=== PATIENT | male | born 1960 | race Caucasian/White ===

== ENCOUNTER 2021-12-03 13:12 | Outpatient (CLI) | payer MEDICARE, MEDICAID, SELFPAY | END 2021-12-03 13:13 | disposition home or self-care (01) | LOC: ANHBWCAUD 13:16 | DX: H91.93 Unspecified hearing loss, bilateral (principal) | CPT/HCPCS: 92555; 92567; 92579 ==

== ENCOUNTER 2024-12-06 08:08 | Outpatient (CLI) | payer MEDICARE, MEDICAID, SELFPAY | END 2024-12-06 08:09 | disposition home or self-care (01) | DX: H91.3 Deaf nonspeaking, not elsewhere classified (principal) | CPT/HCPCS: 92567 ==

== ENCOUNTER 2025-07-25 09:04 | Outpatient (CLI) | payer MEDICARE, MEDICAID, SELFPAY ==
--- OUTSIDE RECORDS SUMMARY | 2025-07-25 09:56 | XMS_ITS | Clinical Summary ---
Author Organization [address] Address [address] [place] [id number] Care Team Providers Care Wage And Salary Specialist Name Role Phone David Winter MD Primary Care Provider Allergies No known active allergies Medications docusate sodium (COLACE) 100 mg capsule take 1 capsule (100MG) by oral route every day at bedtime as needed 0 12/05/2011 Active acetaminophen (TYLENOL) 325 mg tabletIndicatio ns:Fever,Pain Take 2 tablets (650 mg total) by mouth every 4 (four) hours as needed for fever 30 tablet 07/09/2023 Active Active Problems Problem Noted Date Diagnosed Date Pneumonia due to organism 07/04/2023 Assessment & Plan (07/20/2023 11:02 AM CDT): Currently doing very well clinically, will repeat CXR in 2 weeks for follow up. Completed Augmentin Weight loss 05/28/2023 Assessment & Plan (05/28/2023 11:27 AM CDT): He has lost about 30 pounds in less than a year, labs are normal Encephalopathy 07/09/2022 Assessment & Plan (07/09/2022 7:29 AM CDT): encephalopathy 2/2 possible metabolic vrs hypoxic vrs toxic insult vrs sedative side effect of medications There was no epileptiform discharge seen in this tracing. Thrombocytopenia 07/08/2022 Hypoglycemia 07/08/2022 Assessment & Plan (07/08/2022 4:15 PM CDT): resolved Other dysphagia 07/08/2022 Assessment & Plan (07/08/2022 4:16 PM CDT): Pt is being followed by [employer], has educated family and Suly Baker on his current condition and best next steps for him. Lactic acidosis 07/05/2022 Assessment & Plan (07/08/2022 4:14 PM CDT): resolved Aspiration pneumonia 07/05/2022 Assessment & Plan (07/15/2022 9:44 AM CDT): Patient was admitted for 7 days to [facility] with sepsis/aspiration pneumonia. Initially in the ICU on pressors has improved significantly and was discharged to home. No other new issues currently at play Assessment & Plan (07/08/2022 4:10 PM CDT): Continue as planned under sepsis Acute respiratory failure with hypoxia Assessment & Plan (07/08/2022 4:15 PM CDT): Continue as planned under sepsis Transient alteration of awareness 07/05/2022 Assessment & Plan (07/08/2022 4:15 PM CDT): Likely due to septic shock. This has resolved, per hot mill observer and family member. Septic shock due to undetermined organism 2021 Assessment & Plan (07/10/2022 1:13 PM CDT): Pt had initial VS of 93% saturation on 10L non-rebreather, tachycardia of 123, and R39. Meets septic shock criteria, unknown organism causing disease, and required levophed for BP support. It was found that he had a pos source of infection of b/l lung damian, probable aspiration, and was admitted for further evaluation. While in ED, he developed hypotension that was unresponsive to IV fluids which is why he was admitted to the ICU. Blood cultures neg. He recovered well on levophed that has since been d/c'd. - continue daily CBC and BMP, and mag. - monitor VS - continue zosyn for a max of 7 days, current day 5 - will encourage respiratory exercises, may prove difficult due to intellectual disability - supplemental O2 as needed and wean as tolerated Elevated PSA 05/12/2022 Assessment & Plan (05/28/2023 11:06 AM CDT): follow with Dr OVI QUEVEDO , urologist, last PSA of 4.82 Assessment & Plan (05/12/2022 1:17 PM CDT): follow with Dr OVI QUEVEDO , urologist, last PSA of 4.82 Foot pain 03/11/2018 Assessment & Plan (03/11/2018 1:27 PM CDT): Continues follow with Podiatry today is a 6 month follow Medicare annual wellness visit, subsequent 01/06 Assessment & Plan (06/12/2025 9:11 AM CDT): A Medicare Annual Wellness Visit (AWV) was done today as well. The patient filled out a depression screen, functional assessment screen, health risk assessment, and other physicians list. All the elements of this exam were completed as outlined by CMS. Please note that the documentation of this is split between paper documentation and this electronic record. Assessment & Plan (06/10/2024 10:06 AM CDT): A Medicare Annual Wellness Visit (AWV) was done today as well. The patient filled out a depression screen, functional assessment screen, health risk assessment, and other physicians list. All the elements of this exam were completed as outlined by CMS. Please note that the documentation of this is split between paper documentation and this electronic record. Assessment & Plan (05/28/2023 11:06 AM CDT): A Medicare Annual Wellness Visit (AWV) was done today as well. The patient filled out a depression screen, functional assessment screen, health risk assessment, and other physicians list. All the elements of this exam were completed as outlined by CMS. Please note that the documentation of this is split between paper documentation and this electronic record. Assessment & Plan (05/12/2022 1:16 PM CDT): A Medicare Annual Wellness Visit (AWV) was done today as well. The patient filled out a depression screen, functional assessment screen, health risk assessment, and other physicians list. All the elements of this exam were completed as outlined by CMS. Please note that the documentation of this is split between paper documentation and this electronic record. Assessment & Plan (04/26/2021 9:43 AM CDT): A Medicare Annual Wellness Visit (AWV) was done today as well. The patient filled out a depression screen, functional assessment screen, health risk assessment, and other physicians list. All the elements of this exam were completed as outlined by CMS. Please note that the documentation of this is split between paper documentation and this electronic record. Assessment & Plan (04/18/2020 9:39 AM CDT): A Medicare Annual Wellness Visit (AWV) was done today as well. The patient filled out a depression screen, functional assessment screen, health risk assessment, and other physicians list. All the elements of this exam were completed as outlined by CMS. Please note that the documentation of this is split between paper documentation and this electronic record. Assessment & Plan (2018 8:39 AM CDT): A Medicare Annual Wellness Visit (AWV) was done today as well. The patient filled out a depression screen, functional assessment screen, health risk assessment, and other physicians list. All the elements of this exam were completed as outlined by CMS. Please note that the documentation of this is split between paper documentation and this electronic record. Colon cancer screening 2018 Assessment & Plan (2018 8:41 AM CDT): Colonoscopy status is unclear he should at least have colo Guard or stool testing done will discuss with staff at [facility] BMI 23.0-23.9, adult 12/11/2017 Overview (2018): BMI Follow-up includes: nutrition counseling, exercise counseling and education provided. Assessment & Plan (12/11/2017 8:58 AM HOME CARE AIDE): BMI Follow-up includes: nutrition counseling, exercise counseling and education provided. 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 02/18/2014 Overview (01/08/2017): SEVERE MENTAL RETARDAT Assessment & Plan (05/28/2023 11:06 AM CDT): No changes currently we can follow him as his clinical course dictates Assessment & Plan (07/08/2022 4:14 PM CDT): Nothing to do Assessment & Plan (03/11/2018 1:26 PM CDT): Note she is currently we can currently follow Emotional stress reaction 02/18/2014 Overview (01/08/2017): STRESS REACT, EMOTIONAL Assessment & Plan (03/11/2018 1:27 PM CDT): He is not having any new complaints currently Assessment & Plan (12/11/2017 9:05 AM HOME CARE AIDE): No current no current issues we can follow Resolved Problems Problem Noted Date Diagnosed Date Resolved Date BMI 25.0-25.9,adult 01/07/2019 05/12/20 22 Overview (01/07/2019): BMI Follow-up includes: nutrition counseling, exercise counseling and education provided. Medicare annual wellness visit, initial 12/11/2017 05/12/2022 Assessment & Plan (12/11/2017 9:05 AM HOME CARE AIDE): A Medicare Annual Wellness Visit (AWV) was done today as well. The patient filled out a depression screen, functional assessment screen, health risk assessment, and other physicians list. All the elements of this exam were completed as outlined by CMS. Please note that the documentation of this is split between paper documentation and this electronic record. Encounters Date Type Department Care Team Description 06/12/2025 9:00 AM CDT Office Visit [address] [phone] David Winter MD Severe intellectual disability with intelligence quotient 20 to 34 (Primary Dx); Emotional stress reaction; Medicare annual wellness visit, subsequent; Aspiration pneumonia, unspecified aspiration pneumonia type, unspecified laterality, unspecified part of lung (HCC); Hypoglycemia from Last 3 Months Immunizations Immunization Administration Dates Next Due COVID-19 mRNA (PFIZER) 0.3 m L (30 mcg) vaccine (12 years and up) 08/10/2024 Influenza, Quadrivalent, Spl it, Intramuscular 06/19/2016 Influenza, Quadrivalent, Spl it, Preservative Free, Intramuscular 07/09/2023,08/07/2020,07/05/2014 Influenza, Trivalent, IM (MDV) 07/05/2015,2012,06/24/2011 Influenza, Unspecified 06/12/2025,2021(Deferred: Patient decision),07/05/2021(Deferred: Patient decision),07/19/2019,07/22/2018,2016 Pfizer SARS-CoV-2 Monovalent Vaccination (12+ Yrs) PURPLE 12/07/2020,11/15/2020 Pfizer Sars-Cov-2 Bivalent V accination (12+ YRS) 07/03/2022 Pneumococcal Conjugate Pcv20 03/08/2025 Social History Tobacco Use Types Packs/Day Years Used Date Smoking Tobacco: Never Tobacco Cessation:Counseling Given: Not Answered Alcohol Use Standard Drinks/Week Comments No 0 (1 standard drink = 0.6 oz pur e alcohol) Social Connection and Isolation Panel Answer Date Recorded In a typical week, how many times do you talk on the phone with family, friends, or neighbors? More than three times a week 07/06/2023 How often do you get togethe r with friends or relatives? More than three times a week 07/06/2023 How often do you attend chur ch or yazidism services? Never 07/06/2023 Do you belong to any clubs o r organizations such as restorationist groups, unions, fraternal or athletic groups, or school groups? No 07/06/2023 How often do you attend meet ings of the clubs or organizations you belong to? Never 07/06/2023 Are you , , di vorced, , never , or living with a partner? Never 07/06/2023 Overall Financial Resource Strain (CARDIA) Answe r Date Recorded How hard is it for you to pa y for the very basics like food, housing, medical care, and heating? Not hard at all 07/06/2023 PHQ-2 Answer Date Recorded PHQ-2 Total Score (If total score is 3 or more points, staff should administer the PHQ-9) 0 06/12/2025 Hunger Vital Sign Answer Date Recorded Within the past 12 months, y ou worried that your food would run out before you got the money to buy more. Never true 07/06/20 23 Within the past 12 months, t he food you bought just didn't last and you didn't have money to get more. Never true 07/06/2023 PRAPARE - Transportation Answer Date Re corded In the past 12 months, has l ack of transportation kept you from medical appointments or from getting medications? No 11/2022 In the past 12 months, has l ack of transportation kept you from meetings, work, or from getting things needed for daily living? No 07/06/2023 Housing Stability Vital Sign Answer Addison e Recorded In the last 12 months, was t here a time when you were not able to pay the mortgage or rent on time? No 07/06/2023 Number of Places Lived in the Last Year Not on f ile 07/06/2023 In the last 12 months, was t here a time when you did not have a steady place to sleep or slept in a assisted (including now)? No 07/06/2023 Personal Safety Answer Date Recorded Have you ever been in or are you currently in a harmful physical or emotional relationship or is someone making you feel afraid or unsafe? Denies 07/04/2023 Sex and Gender Information Value Date Recorded Sex Assigned at Not on file Legal Sex Male 10:03 AM HOME CARE AIDE Gender Identity Not on file Sexual Orientation Not on file Obstetrics History Last Filed Vital Signs Vital Sign Reading Time Taken Comments Blood Pressure 112/64 06/12/2025 9:02 AM CDT Pulse 62 06/12/2025 9:02 AM CDT Temperature 36.8 C (98.2 F) 07/09/2023 8:15 AM CDT Respiratory Rate 16 07/09/2023 8:15 AM CDT Oxygen Saturation 96% 06/12/2025 9:02 AM CDT Inhaled Oxygen Concentration - - Weight 62.6 kg (138 lb) 06/12/2025 9:02 AM CDT Height 170.2 cm (5' 7) 06/12/2025 9:02 AM CDT Body Mass Index 21.61 06/12/2025 9:02 AM CDT Plan of Treatment Health Maintenance Due Date Last Done Comments Hepatitis C Screening 1960 DTaP/Tdap/Td Vaccine (1 - Tdap) 01/05/1971 Hepatitis B Screening 01/05/1978 Zoster Vaccine (1 of 2) 01/05/2010 Covid-19 Vaccine (6 2023-2 5 season) 2025 08/10/2024, 07/03/2022, 12/30/2021, Additional history exists Depression Screening 06/12/2026 06/12/2025, 07/20/2023, 05/28/2023, Additional history exists Fall Risk Assessment 06/12/2026 06/12/2025, 07/20/2023, 07/09/2023, Additional history exists Well Visit 65+ 06/12/2026 06/12/2025, 09/0 03/2024, 05/28/2023, Additional history exists Prostate Cancer Screening-PSA 12/15/2026, 07/06/2022, 01/29/2022, Additional history exists Colon Cancer Screening-DNA Stool 05/03/2027 05/03/2024, 04/26/2021, 07/06/2020, Additional history exists Colon Cancer Screening-CT Colonography Discontinued 05/03/2024, 04/26/2021, 04/24/2016, Additional history exists Colon Cancer Screening-Colonoscopy Discontinued 05/03/2024, 04/26/2021, 04/24/2016, Additional history exists Colon Cancer Screening-FIT Discontinued 05/03, 04/26/2021, 07/06/2020, Additional history exists Colon Cancer Screening-Sigmoidoscopy Discontinued 05/03/2024, 04/26/2021, 04/24/2016, Additional history exists Pneumococcal vaccine 65+ Completed 03/08/2025 Influenza Vaccine Completed 06/12/2025, , 08/07/2020, Additional history exists Procedures Procedure Name Priority Date/Time Associated Diagnosis Comments PSA DIAGNOSTIC Routine 12/15/2024 7:10 AM CDT COLONOSCOPY Routine 05/03/2024 9:10 AM CDT from Last 3 Months or Most Recently Relevant to Health Maintenance Results * PSA diagnostic (12/15/2024 7:10 AM CDT) SCRIBED PSA, Serum 2.38 0 - 4 EXTERNAL LAB Blood 12/15/2024 7:10 AM CDT us Historical Provider LAB BLOOD ORDERABLES Brandie l Result EXTERNAL LAB * Colonoscopy (05/03/2024 9:10 AM CDT) Anatomical Region Laterality Modality Other us Historical Provider ENDOSCOPY PROCEDURES Brandie l Result from Last 3 Months or Most Recently Relevant to Health Maintenance Insurance [facility] MEDICARE ADVANTAGE [facility]ICARE Address: [address] [address] [place] [address] [facility] MEDICARE ADVANT[facility] MEDICARE Address: [address] [address] [place] [address] [place] [id number] [address] [facility] MEDICARE ADVANTAGE Advance Directives For more information, please contact: [phone] * LIMITED - No CPR (Latest Code Status on File) Date Activated Date Inactivated Comments 07/04/2023 1:14 PM 07/09/2023 5:11 PM Question Answer Comments Provide aggressive medical m anagement before a full cardiopulmonary arrest occurs. Use antibiotics, IV Fluids, and medical treatment unless specifically selected below: No intubationNo non-invasive ventilation * Full Code Date Activated Date Inactivated Comments 07/04/2023 11:55 AM 07/04/2023 1:14 PM * Full Code Date Activated Date Inactivated Comments 07/05/2022 8:35 AM 07/11/2022 3:44 PM Care Teams Wage And Salary Specialist Relationship Specialty Start Date End Date David Winter MD PCP - General Internal Medicine 03/14/21
--- OUTSIDE RECORDS SUMMARY | 2025-07-25 09:56 | XMS_ITS | Clinical Summary ---
Author Organization [facility] Address [address] [place] [address] Care Team Providers Care Drawing In Machine Tender Name Role Phone David Winter MD Primary Care Provider [phone] Source Comments [facility],non-owned Affiliates and Associated Physician Practices is amultiple site organization consisting of ambulatory clinics and hospital sitesin [place], [place], [place] and [place]. This disclosure is being madepursuant to the Care Everywhere program and may not contain all information available regarding this patient. Last updated 18.[facility] Allergies No known active allergies Medications * Be aware that medications may not be up to date on this document. Alwaysverify current medications with the patient. No known medications Social History Tobacco Use Types Packs/Day Years Used Date Smoking Tobacco: Never Alcohol Use Standard Drinks/Week Comments No 0 (1 standard drink = 0.6 oz pur e alcohol) Sex and Gender Information Value Date Recorded Sex Assigned at Not on file Legal Sex Male 8:44 AM RAILWAY HEAD TENDER Gender Identity Not on file Sexual Orientation Not on file Last Filed Vital Signs Vital Sign Reading Time Taken Comments Blood Pressure 111/79 01/21/2010 12:10 PM CDT Pulse 84 01/21/2010 12:10 PM CDT Temperature 36.4 C (97.5 F) 01/21/2010 11:53 AM CDT Respiratory Rate 18 01/21/2010 12:10 PM CDT Oxygen Saturation 98% 01/21/2010 12:10 PM CDT Inhaled Oxygen Concentration - - Weight 59.9 kg (132 lb) 01/21/2010 10:40 AM CDT Height - - Body Mass Index - - Plan of Treatment Health Maintenance Due Date Last Done Comments COLOGUARD (AGES 45-75) - COL ON CA SCREENING 1960 COLON MONITORING 1960 COLONOSCOPY - COLON CA SCREENING 1960 CT COLONOGRAPHY - COLON CA SCREENING 1960 Colorectal Cancer Screening 1960 FIT - COLON CA SCREENING 1960 FLEX SIG - COLON CA SCREENING 1960 LIPID TESTING 1960 HIV SCREENING 01/05/1975 HEPATITIS C SCREENING 01/01/1978 DTAP/TDAP/TD VACCINES (1 - Tdap) 01/05/1979 PNEUMOCOCCAL VACCINE 50+ (1 of 1 - PCV) 01/05/2010 ZOSTER VACCINE (1 of 2) 01/05/2010 DEPRESSION SCREENING 10/05/2024 MEDICARE AWV CALENDAR YEAR 2024 COVID-19 VACCINE (1 - 2023-2 5 season) 2025 INFLUENZA VACCINE (#1) 2025 Respiratory Syncytial Virus (RSV) Vaccine Pt: or over 60 yrs (1 - 1-dose 75+ series) 01/05/2035 HEPATITIS B VACCINE Aged Out No longe r eligible based on patient's age to complete this topic HIB VACCINE Aged Out No longer eligi ble based on patient's age to complete this topic HPV VACCINE Aged Out No longer eligi ble based on patient's age to complete this topic MENINGOCOCCAL (Group B) VACC INE SHARED DECISION-MAKING Aged Out No longer eligibl e based on patient's age to complete this topic MENINGOCOCCAL GROUPS A/C/Y/W VACCINE Aged Out No longer eligible b ased on patient's age to complete this topic Insurance MEDICAID - [place] UHC MANAGED MEDICARE ADV Care Teams Drawing In Machine Tender Relationship Specialty Start Date End Date David Winter MD [address] [place] [id number] PCP - General 01/17/10
== END 2025-07-25 09:05 | disposition home or self-care (01) ==
LOC: ANHBWCAUD 09:05
DX: H91.8X9 Other specified hearing loss, unspecified ear (principal); H91.3 Deaf nonspeaking, not elsewhere classified
CPT/HCPCS: 92555; 92567; 92579